=== PATIENT | male | born 1940 | race Caucasian/White ===

== ENCOUNTER 2018-10-23 04:39 | Inpatient (IN) ==
[2018-10-17 15:03] LABS: Appearance,Urine CLEAR; Bacteria,Urine 0 /hpf (0); Bilirubin,Urine NEG (NEG); Color,Urine YELLOW; Culture Indicated,Urine NO; Glucose,Urine (UA) NEGATIVE (NEG); Ketones,Urine NEG (NEG); Leukocyte Esterase,Urine NEG /uL (NEG); Mucus,Urine FEW /hpf (0); Nitrate,Urine NEG (NEG); Protein,Urine NEG (NEG); Specific Gravity,Urine 1.015 (1.000-1.035); Urine Blood 0.2 mg/dL (<0.03); Urine Hyaline Cast 2 /lpf (0-2); Urine RBC 3 /hpf (0-1); Urine Squamous Epithelial Cell 0 /hpf (0-4); Urine WBC 1 /hpf (0-4); Urobilinogen,Urine NEG (NEG)
[2018-10-17 15:16] LABS: Basophils # (Auto) 0.1 K/mcL (0.0-0.3); Eosinophils # (Auto) 0.3 K/mcL (0.0-0.7); Eosinophils % (Auto) 5.4 % (0.0-7.0); Granulocytes % (Auto) 62.6 % (38.0-78.0); Hemoglobin 13.7 g/dL (13.5-16.5); Lymphocytes # (Auto) 1.2 K/mcL (1.5-4.8); Lymphocytes % (Auto) 20.7 % (15.5-49.0); Mean Cell Volume 95.1 fL (80.0-100.0); Mean Corpuscular HGB Conc 32.7 g/dL (31.0-36.0); Mean Platelet Volume 8.9 fL (7.4-10.4); Monocytes # (Auto) 0.6 K/mcL (0.1-0.9); Monocytes % (Auto) 10.3 % (1.0-12.0); Platelet Count 188 K/mcL (140-440); RBC 4.41 M/mcL (4.50-5.90); Red Cell Distribution Width 12.9 % (11.5-14.5); WBC 5.7 K/mcL (4.5-11.0)
[2018-10-17 15:30] LABS: Blood Urea Nitrogen 22 mg/dl (8-23); Calcium 9.3 mg/dl (8.6-10.4); Carbon Dioxide 26 mmol/L (22-30); Chloride 95 mmol/L (96-108); Glomerular Filtration Rate 57; Glucose 104 mg/dL (70-105); Potassium 3.6 mmol/L (3.3-5.1); Sodium 134 mmol/L (133-145)
[2018-10-17 16:04] LABS: Estimated Average Glucose(eAG) 137 mg/dL; Hemoglobin A1C 6.4 % HGB (4.0-6.0)
[2018-10-23] MEDS ORDERED: IPRATROPIUM/ALBUTEROL 3 ML AMPUL.NEB NEB PRN ×2 (05:00→10:09)
[2018-10-23] MEDS ORDERED: SCOPOLAMINE 1 PATCH PATCH TOPICAL PRN (05:00)
[2018-10-23] MEDS ORDERED: ceFAZolin 2 GM in DEXTROSE 5% IN WATER 50 ML IV SCH (06:00)
[2018-10-23] MEDS ORDERED: PREGABALIN 75 MG CAPSULE PO SCH (06:00)
[2018-10-23] MEDS ORDERED: oxyCODONE 10 MG TAB.ER.12H PO SCH (06:00)
[2018-10-23] MEDS ORDERED: CELECOXIB 200 MG CAPSULE PO SCH (06:00)
[2018-10-23 06:02] LABS: Estimated Average Glucose(eAG) 140 mg/dL; Hemoglobin A1C 6.5 % HGB (4.0-6.0)
[2018-10-23] MEDS ORDERED: MIDAZOLAM 2 MG/2 ML VIAL IV ONE (07:30)
[2018-10-23] MEDS ORDERED: PHENYLEPHRINE 10 MG/ML VIAL IV ONE (07:30)
[2018-10-23] MEDS ORDERED: DEXAMETHASONE 10 MG/ML VIAL IV ONE (07:30)
[2018-10-23] MEDS ORDERED: KETAMINE 10 MG/ML ML IV ONE (07:30)
[2018-10-23] MEDS ORDERED: ONDANSETRON 4 MG/2 ML VIAL IV ONE (07:30)
[2018-10-23] MEDS ORDERED: LIDOCAINE HCL/PF 100 MG/5 ML SYRINGE IV ONE (07:30)
[2018-10-23] MEDS ORDERED: ePHEDrine 50 MG/ML AMPUL IV ONE (07:30)
[2018-10-23] MEDS ORDERED: PROPOFOL 200 MG/20 ML VIAL IV ONE (07:30)
[2018-10-23] MEDS ORDERED: fentaNYL 100 MCG/2 ML VIAL IV ONE ×2 (07:30→10:11)
[2018-10-23] MEDS ORDERED: HEPARIN 20,000 UNIT/ML VIAL IR ONE (08:10)
[2018-10-23] MEDS ORDERED: FLEETS ADULT ENEMA PR PRN (09:12)
[2018-10-23] MEDS ORDERED: oxyCODONE/APAP 5/325MG TABLET PO PRN (09:12)
[2018-10-23] MEDS ORDERED: BISACODYL 10 MG SUPP.RECT PR PRN (09:12)
[2018-10-23] MEDS ORDERED: TRANEXAMIC ACID 1,000 MG/10 ML VIAL IV ONE (09:12)
[2018-10-23] MEDS ORDERED: BENZOCAINE/MENTHOL 1 LOZENGE PO PRN (09:12)
[2018-10-23] MEDS ORDERED: MAGNESIUM HYDROXIDE 30 ML ORAL.SUSP PO PRN (09:12)
[2018-10-23] MEDS ORDERED: ONDANSETRON 4 MG/2 ML VIAL IV PRN (09:12)
[2018-10-23] MEDS ORDERED: POLYETHYLENE GLYCOL 3350 17 GM PACKET PO PRN (09:12)
[2018-10-23] MEDS ORDERED: KETOROLAC 15 MG/ML VIAL IV PRN (09:12)
--- NOTE | 2018-10-23 09:12 | Brief Operative Note ---
Date of procedure: 10/23/18 Pre-op diagnosis: R hip DJD Post-op diagnosis: same Procedure: Right anterior total hip arthroplasty Grafts/Implants: Yes (Depuy Actis 7 std stem, +1.5 36 delta head, 60 cup, neutral altrx liner) Anesthesia: spinal, GLMA Findings: severe arthritis Complications: none Surgeon: Jono Carpenter Wholesale Representative: Juan Womack Estimated blood loss (cc): 300 Specimens Removed/Pathology: none sent Condition: stable Disposition: PACU
--- NOTE | 2018-10-23 10:01 | Operative Note ---
DATE OF OPERATION: 10/23/2018 PREOPERATIVE DIAGNOSIS: Right hip severe osteoarthritis. POSTOPERATIVE DIAGNOSIS: Right hip severe osteoarthritis. PROCEDURE PERFORMED: Right anterior total hip arthroplasty using a DePuy Actis size 7 standard offset femoral stem; a +1.5, 36 mm delta ceramic head ball; a 60 three-hole Elizabeth cup with a neutral AltrX liner. SURGEON: Jono Carpenter M.D. MS ACCESS DATABASE DEVELOPER: Chon Womack PA-C. The PA's assistance was required for the safe and efficient completion of the entire case. This provider's expertise and technical skill were required throughout the case. The PA assisted with preoperative coordination, intraoperative retraction, wound closure, dressing and splint application, as well as postoperative documentation and care coordination. ANESTHESIA: Spinal plus general. DRAINS: None. SPECIMENS: Femoral head which was discarded. BLOOD LOSS: 300 mL. POSTOPERATIVE CONDITION: Stable. INDICATIONS FOR SURGERY: This is an 78-year-old male who has had longstanding, progressive worsening, severe right hip pain and radiographs showed severe right hip [id number] osteoarthritis. FINDINGS AT SURGERY: As above. Post implantation showed good component position and leg length equality. PROCEDURE IN DETAIL: The patient had been seen preoperatively and informed consent had been obtained after discussion of risks and benefits of surgery. Risks including, but not limited to, bleeding, possibly requiring transfusion; infection, possibly requiring implant removal and prolonged IV antibiotics; injury to nerves, blood vessels, other surrounding structures; anesthetic risks; incomplete or no resolution of symptoms; leg length discrepancy; dislocation; fracture; DVT and pulmonary embolus risks; and the possibility of needing further revision surgery. He understood and wished to proceed. Correct operative site was marked and then patient was given spinal anesthesia. He was then taken to the operating room and LMA general given. He was carefully positioned on the fracture table and the right hip and groin were then carefully prepped and draped in normal sterile fashion. Time out was performed verifying patient name, operative site, and plan. Ioban was used to cover all skin surfaces. A standard anterior approach incision was made with a scalpel through skin and subcutaneous tissue. Hemostasis obtained with Bovie cautery. Blunt dissection was taken down onto the tensor fascia and then this was undermined circumferentially. Irrisept was irrigated and a ring retractor placed. Tensor fascia was incised in line with the muscle fibers and then careful blunt dissection was taken medial to the muscle belly. Blunt cobra retractors were placed on the superior and inferior neck. Circumflex vessels were coagulated and cut and vastus fascia split distally. Anterior capsulectomy was performed and capsule releases taken out towards the trochanters. Corkscrew was placed in the femoral head and osteotome was used under fluoro to identify our neck cut trajectory. We then used an oscillating tip saw to make our neck cut. I then made a second neck cut to remove a napkin ring of bone from the femoral neck to aid in removal of the head and then the femoral head was removed. Acetabulum was then exposed. Bone wax was placed on the cut femoral neck surface. Labrum and what remained of it was excised circumferentially, as well as soft tissue from the floor. We irrigated with Irrisept and then began reaming. It took up to a size 59 reamer to get rim ream. We opened a 60 three-hole Elizabeth cup. We irrigated Irrisept again, and then after a minute pulse lavaged with saline. Using the [id number] and Mobi-Moto, we impacted the cup. It ended up being about 37 degrees of inclination and 30 degrees of anteversion. We did get excellent press fit. A center hole cover was placed. A curved osteotome was used to remove osteophytes. There was a very large inferior osteophyte which was removed. Once this was completed, we then placed a 36 neutral liner, carefully aligning the tabs and then impacting and then carefully checking that all tabs were flush after impaction. We then removed traction. The leg was externally rotated maximally. We released capsule around the medial and posterior neck and then the leg was extended and adducted. We released capsule out to the greater trochanter and continued release around the posterior neck. Once we had adequate exposure, a box osteotome was used to gain canal entry. An awl was used to identify canal trajectory. Rongeur and rasp were used to lateralize and then we began sequentially broaching using the [id number] up to a size 7. We trialed a standard offset neck trial with a +1.5 head ball. The hip was reduced with a fair amount of tension. We checked our x-rays. [facility] stated that we were very close on our leg lengths and somewhat under offset. However, I did not feel that due to the tension that we had on the hip that a high offset was necessary and might result in trochanteric bursitis. We went ahead and redislocated. We removed the trial implant. A definitive 7 standard Actis stem was opened. We irrigated the femoral canal with Irrisept, after a minute pulse lavaged with saline, and then impacted the stem. It seated all the way down with the collar on the neck cut, so we opened a +1.5, 36 mm delta head. The trunnion was carefully cleaned and dried and then the head ball briskly impacted with the [id number]. We then reduced the hip. Final fluoro images were taken and saved. We irrigated with Irrisept, after a minute pulse lavaged with saline. A #1 Vicryl was used to close two running stitches the tensor fascia. We then removed the ring retractor and irrigated Irrisept, after a minute pulse lavaged saline again, and then fat was tacked to fascia with Vicryl, and then 2-0 Monocryl for subcutaneous and sally for skin. Xeroform and sterile dressing were applied. The patient was then awakened, extubated, and transferred to recovery in stable condition. EFRA:jack Job ID: [id number] Doc ID: [id number] Jono Carpenter MD
[2018-10-23] MEDS ORDERED: FLUMAZENIL 0.1 MG/ML ML IV PRN (10:09)
[2018-10-23] MEDS ORDERED: diphenhydrAMINE 50 MG/ML VIAL IV PRN (10:09)
[2018-10-23] MEDS ORDERED: ACETAMINOPHEN 1,000 MG/100 ML BOTTLE IV ONE (10:09)
[2018-10-23] MEDS ORDERED: ePHEDrine 50 MG/ML AMPUL IV PRN (10:09)
[2018-10-23] MEDS ORDERED: METOPROLOL TARTRATE 5 MG/5 ML VIAL IV PRN (10:09)
[2018-10-23] MEDS ORDERED: NALOXONE HCL 0.4 MG/ML VIAL IV PRN (10:09)
[2018-10-23] MEDS ORDERED: PROMETHAZINE 25 MG/ML VIAL IV PRN (10:09)
[2018-10-23] MEDS ORDERED: METHOCARBAMOL 1,000 MG/10 ML VIAL IV PRN (10:09)
[2018-10-23] MEDS ORDERED: ATROPINE SULFATE 0.4 MG/ML VIAL IV PRN (10:09)
--- NOTE | 2018-10-23 10:09 | XRay Report ---
HISTORY: Postop right hip arthroplasty FINDINGS: There is a well-positioned right total hip prosthesis. There is no fracture or abnormal soft tissue calcification around the joint. There are a few vascular calcifications in the groin and right side of the pelvis. IMPRESSION: Well-positioned right hip prosthesis Interpreted and Authenticated by: Forest Oviedo 10/23/18
[2018-10-23] MEDS: fentaNYL 100 MCG/2 ML VIAL IV PRN ×2 (10:12→10:16)
[2018-10-23] MEDS ORDERED: LACTATED RINGERS 1,000 ML IV SCH (10:15)
[2018-10-23] MEDS: 0.9 % SODIUM CHLORIDE 1,000 ML IV SCH ×2 (11:00→20:20)
[2018-10-23] MEDS: 0.9 % SODIUM CHLORIDE 10 ML SYRINGE IV SCH ×2 (14:14→22:24)
[2018-10-23] MEDS: ceFAZolin 1 GM VIAL IV SCH ×2 (15:31→22:54)
[2018-10-23] MEDS: CARVEDILOL 6.25 MG TABLET PO SCH (16:44)
[2018-10-23] MEDS: DOCUSATE SODIUM 100 MG CAPSULE PO SCH (20:21)
[2018-10-23] MEDS: ASPIRIN 81 MG TAB.CHEW PO SCH (20:22)
[2018-10-23] MEDS ORDERED: SENNOSIDES 1 TABLET PO SCH (21:00)
[2018-10-23] MEDS ORDERED: SIMVASTATIN 40 MG TABLET PO SCH (21:00)
[2018-10-24] MEDS: ASPIRIN 81 MG TAB.CHEW PO SCH (07:32)
[2018-10-24] MEDS: CARVEDILOL 6.25 MG TABLET PO SCH (07:33)
[2018-10-24] MEDS: DOCUSATE SODIUM 100 MG CAPSULE PO SCH (07:33)
[2018-10-24] MEDS: 0.9 % SODIUM CHLORIDE 1,000 ML IV SCH (07:33)
--- NOTE | 2018-10-24 07:57 | Discharge Summary ---
Providers - Providers Patient information: Note initiated : 10/24/18 at 7:55 am Service Date, if different from initiated Date: [] Patient: Mainor Caraballo 78 y/o M admitted on 10/23/18 for Right Total Hip Arthroplasty. Chief Complaint: [] Discharge date: 10/24/18 Hospitalization Hospital course: Pt was admitted for a R JESSICA. Pt underwent the procedure on the day of admission. Pt spent one night on the floor prior to discharge for IV pain meds, IV abx and PT. Pt will continue ASA 325mg for DVT prophylaxis. Will attend out-pt PT and f/u in 2 weeks. Discharge diagnosis: R hip OA Exam - Exam Clean and dry: No (Mild bloody drainage) Weight bearing status: as tolerated Ortho Discharge - JESSICA - Patient Instructions Diet: Regular Diet Activity: activity as tolerated Total Hip Protocol: Follow activity instructions as provided by Physical Therapy. Dressing Care: May shower in 2 days - Follow Up Plan Disposition: Home, Self-Care Prognosis: Good Rehab Potential: Good Overall status at discharge: patient is progressing back to baseline - Orders For Discharge Prescriptions: Aspirin [Ecotrin] 325 mg PO DAILY #30 tab.ec HYDROcodone/ACETAMINOPHEN [[place] 10-325 Tablet] 1 - 2 tab PO Q4-6HP PRN #75 tab PRN Reason: Pain Pending Studies Resuscitation Status Full Code Diet Regular Diet Start SunOct 23 913 Aspirin (Aspirin) 81 mg PO BID [facility] Last Admin: 10/24/18 07:32 Dose: 81 mg Documented by: Admin: 10/23/18 20:22 Dose: 81 mg Documented by: LOLITA [facility] Last Admin: 10/24/18 07:33 Dose: Not Given Documented by: Admin: 10/23/18 16:44 Dose: 6.25 mg Documented by: [email or web address] Docusate Sodium (Colace) 100 mg PO BID [facility] Last Admin: 10/24/18 07:33 Dose: 100 mg Documented by: Admin: 10/23/18 20:21 Dose: 100 mg Documented by: LOLITA Sodium Chloride (Sodium Chloride 0.9%) 1,000 mls @ 100 mls/hr IV .Q10H [facility] Last Admin: 10/24/18 07:33 Dose: Not Given Documented by: Infusion: 10/24/18 06:20 Dose: 0 mls/hr Documented by: Admin: 10/23/18 20:20 Dose: 100 mls/hr Documented by: Infusion: 10/23/18 20:20 Dose: 100 mls/hr Documented by: Admin: 10/23/18 11:00 Dose: 100 mls/hr Documented by: AMANDA Ketorolac Tromethamine (Toradol) 15 mg IV Q6HP PRN PRN Reason: Pain Stop: 10/25/18 09:15 Last Admin: 10/23/18 10:04 Dose: 15 mg Documented by: ZACK Oxycodone/Acetaminophen (Percocet 5-325 Mg) 0 tab PO Q4HP PRN PRN Reason: PAIN LEVEL 3-6 Last Admin: 10/24/18 07:32 Dose: 2 tab Documented by: JOSEPHINE Pot[facility] ([facility]ur) [facility] Last Admin: 10/24/18 07:32 Dose: 10 meq Documented by: JOSEPHINE Senna (Senokot) 2 tab PO [facility] Last Admin: 10/23/18 20:22 Dose: 2 tab Documented by: LOLITA Simvastatin (Zocor) 40 mg PO [facility] Last Admin: 10/23/18 20:22 Dose: 40 mg Documented by: LOLITA Sodium Chloride (Saline Flush) 10 ml IV Q8 [facility] Last Admin: 10/23/18 22:24 Dose: Not Given Documented by: Admin: 10/23/18 14:14 Dose: Not Given Documented by: AMANDA Triamterene/HCTZ (Maxzide 25) 1 cap PO DAILY [facility] Last Admin: 10/24/18 07:33 Dose: 1 cap Documented by: JOSEPHINE Shift Summary 10/24/18 02:58 Shift Summary by Lucille Muro a/o x4, sba with fww/gb has had no c/o pain this shift, dressing to rt hip c/d/i,last bladder scan at 0125 was 83 cc, tolerated po fluids. meals well,ivf ns at 100 cc/hr to left arm. Initialized on 10/24/18 02:58 - END OF NOTE
[2018-10-24] MEDS ORDERED: POTASSIUM CHLORIDE 10 MEQ TABLET PO SCH (08:00)
[2018-10-24] MEDS ORDERED: TRIAMTERENE/HYDROCHLOROTHIAZID 1 CAP CAPSULE PO SCH (09:00)
[2018-10-24] MEDS ORDERED: PNEUMOCOCCAL 23-VAL P-SAC VAC 0.5 ML SYRINGE IM ONE (10:00)
[2018-10-24] MEDS: 0.9 % SODIUM CHLORIDE 10 ML SYRINGE IV SCH (10:40)
== END 2018-10-24 11:25 | disposition home or self-care (01) | DRG 470 ==
LOC: MEDSUR 04:39
PROVIDERS: ADMIT Orthopaedic Surgery; ATTEND Orthopaedic Surgery